=== PATIENT | male | born 1960 | race Caucasian/White ===

== ENCOUNTER 2017-11-29 11:37 | Observation (INO) | payer OTHER, SELFPAY ==
[2017-11-29] VITALS (13 sets, daily range): BP systolic 111–141; BP diastolic 77–89; PULSE 74–105; RESP 14–29; TEMP 36.4–36.9; O2SAT 97–100; BMI 34.4; BMI 35.9
[2017-11-29] MEDS: MethylPREDNISolone 125 MG/2 ML Vial IV (11:40)
--- NOTE | 2017-11-29 11:50 | EKG12_ITS ---
Test Reason : CHEST PAIN Blood Pressure : / mmHG Vent. Rate : 089 BPM Atrial Rate : 089 BPM P-R Int : 160 ms QRS Dur : 090 ms QT Int : 374 ms P-R-T Axes : 062 034 056 degrees QTc Int : 455 ms Normal sinus rhythm Normal ECG Confirmed by BRENDA BLANCO ([id number]), scientific publications editor SHAQ TORRES ([id number]) on 12/10/2017 6:29:58 PM Referred By: Confirmed By:BRENDA BLANCO
--- NOTE | 2017-11-29 11:50 | RAD_ITS ---
STUDY: X-RAY CHEST REASON FOR EXAM: Male, 57 years old. Shortness of breath. TECHNIQUE: Single AP portable view of the chest. COMPARISON: None. FINDINGS: The lungs are mildly hypoexpanded. There is no focal mass or infiltrate. There is no demonstrated pleural abnormality. Normal size heart. Normal mediastinum and samantha. Normal visualized pulmonary arteries. Normal visualized aortic arch and descending thoracic aorta. The thoracic spine is obscured by the mediastinum. Normal visualized ribs, clavicles, and shoulders. There is no demonstrated abnormality of the visualized soft tissue structures of the upper abdomen. RAD/Chest 1 View (Portable) IMPRESSION: No acute cardiopulmonary disease. Electronically Signed: Paul Perera DO at 12:07 EDT Tel [phone], Service support ,
[2017-11-29] MEDS: 0.9% Normal Saline 1,000 ML 1000 ML IV (11:58)
--- NOTE | 2017-11-29 12:00 | ED.RN ---
PT GRABBED HIS CHEST. STARTED C/O OF INCREASED SOB. PT VISIBLY WORKING TO BREATHE. PULSE OX REMAINS 100%. PT PLACED ON NRB. DR VELASQUEZ TO THE BEDSIDE
--- NOTE | 2017-11-29 12:01 | ED.RN ---
SECOND EPI GIVEN
[2017-11-29 12:28] LABS: Absolute Lymphocyte Count 2.75 X10^3/ul (0.83-4.51); Absolute Neutrophil Count 7.8 X10^3/uL (2.0-7.7); Basophil# 0.04 X10^3/uL; Basophil% 0.3 % (0-1); Eosinophil# 0.34 X10^3/uL; Eosinophils% 2.9 % (0-5); Hematocrit 42.8 % (40-54); Hemoglobin 13.9 g/dl (13.0-16.5); Lymphocyte # 2.75 X10^3/ul (4.0); Lymphocyte % 23.5 % (19-41); Mean Corp Hgb Conc 32.5 g/gl (32-36); Mean Corpuscular Hgb 27.7 pg (27.0-32.0); Mean Corpuscular Volume 85.4 fL (80-94); Mean Platelet Vol. 10.3 fl (6.2-12.0); Monocyte# 0.69 X10^3/uL; Monocyte% 5.9 % (0-10); Neutrophil # 7.83 X10^3/uL (2.7-7.7); Neutrophil % 67.1 % (47-70); Platelet Count 364 K/mm3 (150-450); RBC Distribution Width CV 14.1 % (11.6-14.6); RBC Distribution Width SD 43.7 fl (35.1-43.9); Red Blood Count 5.01 M/mm3 (4.6-6.2); White Blood Count 11.7 K/mm3 (4.4-11.0)
--- NOTE | 2017-11-29 12:31 | ED.DCSUM_ITS ---
- ER Visit Summary Date of Service: 11/29/17 Chief Complaint: Allergic reaction History of Present Illness: The patient is a 57 M presenting with allergic reaction. Patient was riding in a truck to work and began having itching in both arms and legs. When he arrived at work he started staggering and vomited. EMS was called. He was given Benadryl prior to arrival per EMS. He complains of tightness in his throat, shortness of breath and diffuse rash. He denies any new exposures. He does not believe he was stung. No new medications or foods. Physical Examination: Vitals are stable. Patient is afebrile. Alert no acute distress. HEENT exam is unremarkable. No tongue swelling. No pharyngeal edema. Neck is supple. No stridor Lungs are clear and equal bilaterally. Heart is regular rate and rhythm. Abdomen is soft nontender nondistended. Extremities are unremarkable. Skin diffuse urticaria No focal neurologic deficit. Remainder of exam is unremarkable. Emergency Department Course and Treatment: Patient was given epinephrine IM, Solu-Medrol, Pepcid. He initially had improvement and then had return of his symptoms. He was given additional epinephrine IM with improvement. He has improvement of the sensation of throat tightness but continues to have itching in his extremities. He was given Benadryl IV. He was observed in the ED with improvement. CBC normal except for white count 11.7. Chemistries unremarkable. Troponin is negative. Chest x-ray shows no acute process. EKG is sinus rate of 89. Discussed with the hospitalist for observation. Disposition: Observation Impression: Anaphylaxis This note was generated with [employer] dictation software. It may contain incorrect words, spelling, and punctuation that were not noted in review of the chart prior to signing ED Disposition - Plan for ED Patient: Chief Complaint: Allergic Reaction Referrals: [facility] Doctor,Out of [Primary Care Provider] -
[2017-11-29 12:35] LABS: POSITIVE COUNT NO; POSITIVE DIFFERENTIAL NO; POSITIVE MORPHOLOGY NO
[2017-11-29 12:41] LABS: Anion Gap 10 (5-15); BUN 11 mg/dL (7-18); Calcium,Total 8.3 mg/dL (8.5-10.1); Chloride 108 mmol/L (98-107); EST Glomerular Filtration Rate 74 mL/min (>60); Est Glom Filt Rate - Afr Amer 89 mL/min (>60); Estimated Creatinine Clearance 75.88 ml/min; Glucose 154 mg/dL (74-106); Potassium 3.7 mmol/L (3.5-5.1); Sodium Level 141 mmol/L (136-145)
--- NOTE | 2017-11-29 12:52 | ED.RN ---
PT C/O ITCHING BEGINNING IN ARMS AGAIN. PT STATES THIS IS HOW IT STARTED BEFORE. DR VELASQUEZ NOTIFIED
[2017-11-29] MEDS: DiphenhydrAMINE 50 MG/ML Syringe 25 MG IV (12:59)
--- NOTE | 2017-11-29 15:13 | PCM.HP.STD ---
Problem List (1) GERD (gastroesophageal reflux disease) Status: Chronic (2) Gout Status: Chronic (3) Hyperlipidemia Status: Chronic (4) Hypertension Status: Chronic History of Present Illness Date of Admission: 11/29/17 Chief Complaint: Itching, skin rash. The patient is a 57 year old M with past medical history as mentioned above presented to the emergency room because of itching, skin rash and shortness of breath. 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 Shortly after, he started having skin rash that started on both upper arms, upper back and upper chest and then became generalized and associated with shortness of breath. He mentioned that he felt that there is a lump in his throat, felt short of breath at rest, associated with dizziness and lightheadedness as well as nausea and vomiting. He denied taking any new medications or foods. He denied insect bites. He denied known allergies in the past. He has been taking lisinopril for more than 2 years for hypertension. In the emergency department, he received epinephrine injections twice as well as IV Solu-Medrol and Pepcid and symptoms continued to recur. He was afebrile, heart rate was stable, blood pressure stable, at one point he required nonrebreather mask because of shortness of breath and at this time, pulse ox is maintained on 2 L of oxygen. His routine blood work was unremarkable. EKG revealed normal sinus rhythm, normal intervals and no evidence of acute ischemic changes or cardiac arrhythmias. Troponin is negative. Chest x-ray showed no acute findings. He is being admitted for anaphylactic reaction of unknown etiology. Past Medical History Past Medical History (Chronic Problems): Chronic Problems GERD (gastroesophageal reflux disease) (Chronic) Gout (Chronic) Hyperlipidemia (Chronic) Hypertension (Chronic) Allergies No Known Allergies Allergy (Verified 11/29/17 11:51) Home Medications: Ambulatory Orders Medication Instructions Recorded Allopurinol [Zyloprim] 300 mg PO DAILY 11/29/17 Lisinopril [Zestril] 5 mg PO DAILY 11/29/17 Omeprazole [Prilosec] 20 mg PO DAILY 11/29/17 Pravastatin [Pravachol] 20 mg PO DAILY 11/29/17 Surgical History: - - Back surgery. Psychiatric History: No pertinent psych hx Lives: Spouse/ Significant Other Smoking Status: Current some day smoker Tobacco Use: Cigarettes Alcohol: Heavy Drugs: None - *Family History Maternal History Items: No pertinent history Paternal History Items: No pertinent history Review of Systems Constitutional: Denies: Anorexia, Chills, Fever, Weakness Eyes: Denies: Blurred vision, Double vision, Drainage, Redness HEENT: Denies: Difficulty Hearing, Ear Pain, Eye Pain, Nasal Congestion, Sore Throat Cardiovascular: Reports: Chest Tightness, Light Headedness. Denies: Chest Pain, Chest Pressure, Heaviness, Palpitations, Syncope Respiratory: Reports: Shortness of Breath. Denies: Cough, Pleuritic Pain, Sputum production, Wheezing Gastrointestinal: Reports: Nausea, Vomiting. Denies: Abdominal Pain, Constipation, Diarrhea Genitourinary: Denies: Dysuria, Frequency, Hematuria Musculoskeletal: Denies: Arm Pain, Back Pain, Foot Pain Skin: Reports: Pruritis, Rash. Denies: Dryness Neurological: Denies: Balance problems, Double vision, Change in Speech, Slurred speech, Confusion, Headaches, Incoordination, Numbness Psychiatric: Denies: Anxiety, Depression Endocrine: Denies: Change in Body Habitus, Polydipsia VTE Information - Inpt Only VTE Present on Admission: No VTE Mechan Device Prophylaxis: None VTE Pharm Prophylaxis ordered?: No - Physical Exam General: Alert, Oriented x3, Cooperative, No apparent distress HEENT: Atraumatic, PERRLA, EOMI Oral: Moist Mucosa, No Gingival or Mucosal Lesions/ Ulcerations Neck: Supple, No JVD, Negative Carotid Bruits, Trachea Midline, Thyroid Normal Size and Texture Lungs: Clear to auscultation, Normal air movement, No rhonchi, No wheeze, No rales Cardiovascular: Regular rate, Regular Rhythm, Normal S1, Normal S2, No murmurs, PMI Normal Abdomen: Bowel Sounds Present, Soft, Non Tender, Non-Distended, No Hepato-splenomegaly Extremities: No clubbing, No cyanosis, No edema Skin: No rashes, No breakdown Lymphatic: No Cervical, Supraclavicular, or Inguinal Adenopathy Neurological: Cranial nerves II-XII grossly intact, Motor Exam 5/5 strength throughout Psych/Mental Status: Normal Affect, Appropriate, Alert and oriented to time, place, person, mood and affect Vital Signs Temp Pulse Resp BP Pulse Ox 97.5 F L 92 29 H 141/89 H 100 11/29/17 11:41 11/29/17 15:08 11/29/17 15:08 11/29/17 15:08 11/29/17 15:08 Laboratory Tests 11/29/17 11/29/17 Range/Units 12:13 12:13 WBC 11.7 H (4.4-11.0) K/mm3 RBC 5.01 (4.6-6.2) M/mm3 Hgb 13.9 (13.0-16.5) g/dl Hct 42.8 (40-54) % MCV 85.4 (80-94) fL MCH 27.7 (27.0-32.0) pg MCHC 32.5 (32-36) g/gl RDW 14.1 (11.6-14.6) % RDW Differential 43.7 (35.1-43.9) fl Plt Count 364 (150-450) K/mm3 MPV 10.3 (6.2-12.0) fl Immature Gran % (Auto) 0.300 (0.0-0.9) % Neut % (Auto) 67.1 (47-70) % Lymph % (Auto) 23.5 (19-41) % [place] % (Auto) 5.9 (0-10) % Eos % (Auto) 2.9 (0-5) % Baso % (Auto) 0.3 (0-1) % Absolute Neuts (auto) 7.8 H (2.0-7.7) X10^3/uL Absolute Lymphs (auto) 2.75 (0.83-4.51) X10^3/ul Total Counted Not Reportable Sodium 141 (136-145) mmol/L Potassium 3.7 (3.5-5.1) mmol/L Chloride 108 H (98-107) mmol/L Carbon Dioxide 23.0 (21.0-32.0) mmol/L Anion Gap 10 (5-15) BUN 11 (7-18) mg/dL Creatinine 1.10 (0.70-1.30) mg/dL Estim Creat Clear Calc 75.88 ml/min Est GFR (MDRD) Af Amer 89 (>60) mL/min Est GFR (MDRD) Non-Af 74 (>60) mL/min BUN/Creatinine Ratio 10.0 (10-20) RATIO Glucose 154 H (74-106) mg/dL Calcium 8.3 L (8.5-10.1) mg/dL Troponin I < 0.015 (<0.045) ng/mL Clinical Impression(s) from Imaging Studies Chest X-Ray 11/29/17 11:50 IMPRESSION: No acute cardiopulmonary disease. Electronically Signed: Paul Perera DO at 12:07 EDT Tel [phone], Service support , Assessment/Plan This is a 57 year-old with past medical history as mentioned above presented to the emergency room because of itching, skin rash, shortness of breath and nausea with vomiting and he was found to have anaphylactic reaction of unknown etiology. #1 anaphylactic reaction: Of unclear etiology. Patient has been on lisinopril for more than 2 years. This is not typical for angioedema, no lip swelling. Patient received epinephrine twice in the ER as well as IV steroids and Pepcid. His symptoms kept recurring. At this time, his vital signs are stable, respiratory status is stabilized. Routine blood work reviewed, unremarkable. EKG was unremarkable as well. Chest x-ray showed no acute findings. Plan: Admit to PCU for observation, cardiac monitoring, continuous pulse oximeter, hold lisinopril, start IV Solu-Medrol, IV Benadryl as needed, IV Pepcid twice daily, repeat CBC and BMP tomorrow morning. #2 hypertension: Blood pressure stable, hold lisinopril. #3 hyperlipidemia: Continue statins. #4 GERD: Start Pepcid IV twice daily. #5 gout: Continue allopurinol. #6 DVT prophylaxis: Low risk patient, no prophylaxis indicated. This note was generated with [employer] dictation software. It may contain incorrect words, spelling, and punctuation that were not noted in checking the note before signing. Code Visit OBSV E&M: 19009 Initial observation care L3
--- NOTE | 2017-11-29 15:20 | HP.PCM_ITS ---
Problem List (1) GERD (gastroesophageal reflux disease) Status: Chronic (2) Gout Status: Chronic (3) Hyperlipidemia Status: Chronic (4) Hypertension Status: Chronic History of Present Illness Date of Admission: 11/29/17 Chief Complaint: Itching, skin rash. The patient is a 57 year old M with past medical history as mentioned above presented to the emergency room because of itching, skin rash and shortness of breath. 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 Shortly after, he started having skin rash that started on both upper arms, upper back and upper chest and then became generalized and associated with shortness of breath. He mentioned that he felt that there is a lump in his throat, felt short of breath at rest, associated with dizziness and lightheadedness as well as nausea and vomiting. He denied taking any new medications or foods. He denied insect bites. He denied known allergies in the past. He has been taking lisinopril for more than 2 years for hypertension. In the emergency department, he received epinephrine injections twice as well as IV Solu-Medrol and Pepcid and symptoms continued to recur. He was afebrile, heart rate was stable, blood pressure stable, at one point he required nonrebreather mask because of shortness of breath and at this time, pulse ox is maintained on 2 L of oxygen. His routine blood work was unremarkable. EKG revealed normal sinus rhythm, normal intervals and no evidence of acute ischemic changes or cardiac arrhythmias. Troponin is negative. Chest x-ray showed no acute findings. He is being admitted for anaphylactic reaction of unknown etiology. Past Medical History Past Medical History (Chronic Problems): Chronic Problems GERD (gastroesophageal reflux disease) (Chronic) Gout (Chronic) Hyperlipidemia (Chronic) Hypertension (Chronic) Allergies No Known Allergies Allergy (Verified 11/29/17 11:51) Home Medications: Ambulatory Orders Medication Instructions Recorded Allopurinol [Zyloprim] 300 mg PO DAILY 11/29/17 Lisinopril [Zestril] 5 mg PO DAILY 11/29/17 Omeprazole [Prilosec] 20 mg PO DAILY 11/29/17 Pravastatin [Pravachol] 20 mg PO DAILY 11/29/17 Surgical History: - - Back surgery. Psychiatric History: No pertinent psych hx Lives: Spouse/ Significant Other Smoking Status: Current some day smoker Tobacco Use: Cigarettes Alcohol: Heavy Drugs: None - *Family History Maternal History Items: No pertinent history Paternal History Items: No pertinent history Review of Systems Constitutional: Denies: Anorexia, Chills, Fever, Weakness Eyes: Denies: Blurred vision, Double vision, Drainage, Redness HEENT: Denies: Difficulty Hearing, Ear Pain, Eye Pain, Nasal Congestion, Sore Throat Cardiovascular: Reports: Chest Tightness, Light Headedness. Denies: Chest Pain , Chest Pressure, Heaviness, Palpitations, Syncope Respiratory: Reports: Shortness of Breath. Denies: Cough, Pleuritic Pain, Sputum production, Wheezing Gastrointestinal: Reports: Nausea, Vomiting. Denies: Abdominal Pain, Constipation, Diarrhea Genitourinary: Denies: Dysuria, Frequency, Hematuria Musculoskeletal: Denies: Arm Pain, Back Pain, Foot Pain Skin: Reports: Pruritis, Rash. Denies: Dryness Neurological: Denies: Balance problems, Double vision, Change in Speech, Slurred speech, Confusion, Headaches, Incoordination, Numbness Psychiatric: Denies: Anxiety, Depression Endocrine: Denies: Change in Body Habitus, Polydipsia VTE Information - Inpt Only VTE Present on Admission: No VTE Mechan Device Prophylaxis: None VTE Pharm Prophylaxis ordered?: No - Physical Exam General: Alert, Oriented x3, Cooperative, No apparent distress HEENT: Atraumatic, PERRLA, EOMI Oral: Moist Mucosa, No Gingival or Mucosal Lesions/ Ulcerations Neck: Supple, No JVD, Negative Carotid Bruits, Trachea Midline, Thyroid Normal Size and Texture Lungs: Clear to auscultation, Normal air movement, No rhonchi, No wheeze, No rales Cardiovascular: Regular rate, Regular Rhythm, Normal S1, Normal S2, No murmurs, PMI Normal Abdomen: Bowel Sounds Present, Soft, Non Tender, Non-Distended, No Hepato- splenomegaly Extremities: No clubbing, No cyanosis, No edema Skin: No rashes, No breakdown Lymphatic: No Cervical, Supraclavicular, or Inguinal Adenopathy Neurological: Cranial nerves II-XII grossly intact, Motor Exam 5/5 strength throughout Psych/Mental Status: Normal Affect, Appropriate, Alert and oriented to time, place, person, mood and affect Vital Signs Temp Pulse Resp BP Pulse Ox 97.5 F L 92 29 H 141/89 H 100 11/29/17 11:41 11/29/17 15:08 11/29/17 15:08 11/29/17 15:08 11/29/17 15:08 Laboratory Tests 3 11/29/17 11/29/17 Range/Units 12:13 12:13 WBC 11.7 H (4.4-11.0) K/mm3 RBC 5.01 (4.6-6.2) M/mm3 Hgb 13.9 (13.0-16.5) g/dl Hct 42.8 (40-54) % MCV 85.4 (80-94) fL MCH 27.7 (27.0-32.0) pg MCHC 32.5 (32-36) g/gl RDW 14.1 (11.6-14.6) % RDW Differential 43.7 (35.1-43.9) fl Plt Count 364 (150-450) K/mm3 MPV 10.3 (6.2-12.0) fl Immature Gran % (Auto) 0.300 (0.0-0.9) % Neut % (Auto) 67.1 (47-70) % Lymph % (Auto) 23.5 (19-41) % [place] % (Auto) 5.9 (0-10) % Eos % (Auto) 2.9 (0-5) % Baso % (Auto) 0.3 (0-1) % Absolute Neuts (auto) 7.8 H (2.0-7.7) X10^3/uL Absolute Lymphs (auto) 2.75 (0.83-4.51) X10^3/ul Total Counted Not Reportable Sodium 141 (136-145) mmol/L Potassium 3.7 (3.5-5.1) mmol/L Chloride 108 H (98-107) mmol/L Carbon Dioxide 23.0 (21.0-32.0) mmol/L Anion Gap 10 (5-15) BUN 11 (7-18) mg/dL Creatinine 1.10 (0.70-1.30) mg/dL Estim Creat Clear Calc 75.88 ml/min Est GFR (MDRD) Af Amer 89 (>60) mL/min Est GFR (MDRD) Non-Af 74 (>60) mL/min BUN/Creatinine Ratio 10.0 (10-20) RATIO Glucose 154 H (74-106) mg/dL Calcium 8.3 L (8.5-10.1) mg/dL Troponin I < 0.015 (<0.045) ng/mL Clinical Impression(s) from Imaging Studies Chest X-Ray 11/29/17 11:50 IMPRESSION: No acute cardiopulmonary disease. Electronically Signed: Paul Perera DO at 12:07 EDT Tel [phone], Service support , Assessment/Plan This is a 57 year-old with past medical history as mentioned above presented to the emergency room because of itching, skin rash, shortness of breath and nausea with vomiting and he was found to have anaphylactic reaction of unknown etiology. #1 anaphylactic reaction: Of unclear etiology. Patient has been on lisinopril for more than 2 years. This is not typical for angioedema, no lip swelling. Patient received epinephrine twice in the ER as well as IV steroids and Pepcid. His symptoms kept recurring. At this time, his vital signs are stable, respiratory status is stabilized. Routine blood work reviewed, unremarkable. EKG was unremarkable as well. Chest x-ray showed no acute findings. Plan: Admit to PCU for observation, cardiac monitoring, continuous pulse oximeter, hold lisinopril, start IV Solu-Medrol, IV Benadryl as needed, IV Pepcid twice daily, repeat CBC and BMP tomorrow morning. #2 hypertension: Blood pressure stable, hold lisinopril. #3 hyperlipidemia: Continue statins. #4 GERD: Start Pepcid IV twice daily. #5 gout: Continue allopurinol. #6 DVT prophylaxis: Low risk patient, no prophylaxis indicated. This note was generated with [employer] dictation software. It may contain incorrect words, spelling, and punctuation that were not noted in checking the note before signing. Code Visit OBSV E&M: 21913 Initial observation care L3
[2017-11-29] MEDS: 0.9% Normal Saline 1,000 ML 75 ML IV (15:50)
[2017-11-30] VITALS (7 sets, daily range): BP systolic 135–159; BP diastolic 80–91; PULSE 82–99; RESP 14–16; TEMP 36.6–37.1; O2SAT 93–96
[2017-11-30] MEDS: 0.9% Normal Saline 1,000 ML 75 ML IV (04:10)
[2017-11-30 07:05] LABS: Absolute Lymphocyte Count 0.98 X10^3/ul (0.83-4.51); Absolute Neutrophil Count 14.6 X10^3/uL (2.0-7.7); Hematocrit 40.4 % (40-54); Lymphocyte # 0.98 X10^3/ul (4.0); Lymphocyte % 6.2 % (19-41); Mean Corp Hgb Conc 32.2 g/gl (32-36); Mean Corpuscular Hgb 27.5 pg (27.0-32.0); Mean Corpuscular Volume 85.6 fL (80-94); Mean Platelet Vol. 10.2 fl (6.2-12.0); Monocyte# 0.22 X10^3/uL; Monocyte% 1.4 % (0-10); Neutrophil # 14.56 X10^3/uL (2.7-7.7); Neutrophil % 92.3 % (47-70); Platelet Count 276 K/mm3 (150-450); RBC Distribution Width CV 13.9 % (11.6-14.6); RBC Distribution Width SD 43.9 fl (35.1-43.9); Red Blood Count 4.72 M/mm3 (4.6-6.2); White Blood Count 15.8 K/mm3 (4.4-11.0)
[2017-11-30 07:15] LABS: POSITIVE COUNT NO; POSITIVE DIFFERENTIAL NO; POSITIVE MORPHOLOGY NO
[2017-11-30 07:28] LABS: Anion Gap 12 (5-15); BUN 15 mg/dL (7-18); BUN/Creat Ratio 15.1 RATIO (10-20); Calcium,Total 8.6 mg/dL (8.5-10.1); Chloride 109 mmol/L (98-107); EST Glomerular Filtration Rate 83 mL/min (>60); Est Glom Filt Rate - Afr Amer 100 mL/min (>60); Estimated Creatinine Clearance 75.32 ml/min; Glucose 190 mg/dL (74-106); Potassium 4.4 mmol/L (3.5-5.1); Sodium Level 141 mmol/L (136-145)
[2017-11-30] MEDS: Allopurinol 300 MG Tablet PO (09:02)
[2017-11-30] MEDS: predniSONE 20 MG Tablet 40 MG PO (13:24)
[2017-11-30] MEDS: Loratadine 10 MG Tablet PO (13:24)
[2017-11-30] MEDS: Famotidine 20 MG Tablet 40 MG PO (13:24)
--- NOTE | 2017-11-30 16:23 | DCINST_ITS ---
- Discharge Diagnoses Current Active Problems: Current Active and Chronic Problems GERD (gastroesophageal reflux disease) (Chronic) Gout (Chronic) Hyperlipidemia (Chronic) Hypertension (Chronic) You will use the following diet at home:: No restrictions Your food should be the consistency of: Regular Your liquids should be the consistency of: Regular/Thin Discharge Activity: Return to Normal Activity - Make sure you are around people for the next few days in case the symtoms return Return to work on:: 12/03/17 Call your doctor if you observe: Fever of 101 or Higher, Inability to urinate, Inability to have a bowel movement, Shortness of breath, Dizziness, Fainting spells, Swelling in the ankles, Chest pain, - - recurrent rash, itching, trouble swallowing, trouble breathing, swollen tongue or swollen lips Instructions: ED Anaphylaxis General, First Aid: Allergic Reactions Additional Instructions: I do not know what you are allergic to......I can not guarantee that this will not happen again because of this. It may be the lisinopril....this is one of the side effects of this drug and it can happen at any time.....loco pina have been on the drugs for a few years. It also could be the Pravastatin because this was only recently added to your drug regimen.....do NOT take either one of these medications. It could also be due to any new laundry products, soap, colognes, dryer sheets, lotions etc. I am giving you a prescription for an EPIPEN and this is to be used in the event you develop the same symptoms again......keep this with you at all times. I am also giving you a 5 days course of 2 different antihistamine drugs....Claritin and Famotidine and steroids.....theses medications help prevent allergic reactions. You may need to see an patient financial representative and have testing done to try and identify the agent that lead to the reaction. Discuss this with your PCP. There is a history of asthma in your family and you wheeze with exercise and exposure to cold air....I would consider having pulmonary function tests in the future. Please also consider discontinuing smoking. Pending Tests on Discharge: none Allergies/Adverse Reactions: Allergies No Known Allergies Allergy (Verified 11/29/17 11:51) Medications to take at Discharge Allopurinol [Zyloprim] 300 mg PO DAILY 11/29/17 Omeprazole [Prilosec] 20 mg PO DAILY 11/29/17 Famotidine [Pepcid] 20 mg PO BID #10 tab 11/30/17 Loratadine [Claritin] 10 mg PO DAILY #5 tab 11/30/17 Prednisone 40 mg PO DAILY #10 tab 11/30/17 The following prescriptions were given: Loratadine [Claritin] 10 mg PO DAILY #5 tab Prednisone 40 mg PO DAILY #10 tab Famotidine [Pepcid] 20 mg PO BID #10 tab Primary Care Physician: Rachel Doctor,Out of [NON-STAFF] - Please follow up with your Primary Care Physician in: early next week Proposed Discharge Date: 11/30/17
--- NOTE | 2018-01-02 07:01 | PCM.DC.SUM ---
Discharge Date and Diagnosis Date of Admission: 11/29/17 Date of Discharge: 11/30/17 - Primary Discharge Diagnosis Anaphylactic reaction to unknown allergen - Secondary Discharge Diagnosis Chronic Problems Obesity (Chronic) GERD (gastroesophageal reflux disease) (Chronic) Gout (Chronic) Hyperlipidemia (Chronic) Hypertension (Chronic) Hospital Course and Treatment Imaging Results: Clinical Impression(s) from Imaging Studies Chest X-Ray 11/29/17 11:50 IMPRESSION: No acute cardiopulmonary disease. Electronically Signed: Paul ePrera DO at 12:07 EDT Tel [phone], Service support , Laboratory Tests 11/29/17 11/29/17 11/30/17 12:13 12:13 06:10 WBC 11.7 H 15.8 H RBC 5.01 4.72 Hgb 13.9 13.0 Hct 42.8 40.4 MCV 85.4 85.6 MCH 27.7 27.5 MCHC 32.5 32.2 RDW 14.1 13.9 RDW Differential 43.7 43.9 Plt Count 364 276 MPV 10.3 10.2 Immature Gran % (Auto) 0.300 0.100 Neut % (Auto) 67.1 92.3 H Lymph % (Auto) 23.5 6.2 L [place] % (Auto) 5.9 1.4 Eos % (Auto) 2.9 0.0 Baso % (Auto) 0.3 0.0 Absolute Neuts (auto) 7.8 H 14.6 H Absolute Lymphs (auto) 2.75 0.98 Total Counted Not Reportable Not Reportable Sodium 141 Potassium 3.7 Chloride 108 H Carbon Dioxide 23.0 Anion Gap 10 BUN 11 Creatinine 1.10 Estim Creat Clear Calc 75.88 Est GFR (MDRD) Af Amer 89 Est GFR (MDRD) Non-Af 74 BUN/Creatinine Ratio 10.0 Glucose 154 H Calcium 8.3 L Troponin I < 0.015 11/30/17 06:10 WBC RBC Hgb Hct MCV MCH MCHC RDW RDW Differential Plt Count MPV Immature Gran % (Auto) Neut % (Auto) Lymph % (Auto) [place] % (Auto) Eos % (Auto) Baso % (Auto) Absolute Neuts (auto) Absolute Lymphs (auto) Total Counted Sodium 141 Potassium 4.4 Chloride 109 H Carbon Dioxide 20.0 L Anion Gap 12 BUN 15 Creatinine 1.00 Estim Creat Clear Calc 75.32 Est GFR (MDRD) Af Amer 100 Est GFR (MDRD) Non-Af 83 BUN/Creatinine Ratio 15.1 Glucose 190 H Calcium 8.6 Troponin I none Operations: None Procedures: None Summary of Care Provided: The patient is a 57 year old M with a past medical history of GERD, gout, hyperlipidemia, hypertension and obesity who presented to the emergency department at [facility] on 11/29/2017 complaining of itching, skin rash and shortness of breath. 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 He felt as if there was a lump in his throat and was short of breath even at rest. He complained of dizziness and lightheadedness as well as nausea and vomiting. His only new medication was Pravastatin. He denied any new foods and also denied any insect bites. He denied any known allergies in the past. He had been taking lisinopril for 2 years with no problem. He was treated with epinephrine injection ?2 in the emergency room as well as IV Solu-Medrol and Pepcid. The symptoms continued to recur and he was admitted to the hospital and continued on IV Solu-Medrol, IV Pepcid and also Benadryl. Lisinopril was discontinued. The following day he had no pruritus and the rash was markedly improved. He denied SOB. The lungs were CTA. He was discharged home and instructed to discontinue both Lisinopril and Pravastatin. He was given prescription for an EpiPen. He was given Famotidine, Prednisone and Claritin and instructed to take them as directed for the next 5 days. I recommended he discuss referral to an global account manager with his PCP. Smoking cessation counselling was given in the hospital. Discharge Activity: Return to Normal Activity - Make sure you are around people for the next few days in case the symtoms return Return to work on:: 12/03/17 Call your doctor if you observe: Fever of 101 or Higher, Inability to urinate, Inability to have a bowel movement, Shortness of breath, Dizziness, Fainting spells, Swelling in the ankles, Chest pain, - - recurrent rash, itching, trouble swallowing, trouble breathing, swollen tongue or swollen lips Home Medications: Medications to take at Discharge Allopurinol [Zyloprim] 300 mg PO DAILY 11/29/17 Omeprazole [Prilosec] 20 mg PO DAILY 11/29/17 Epinephrine [Epipen] 0.3 mg IJ X1 PRN #1 auto.injct 11/30/17 Famotidine [Pepcid] 20 mg PO BID #10 tab 11/30/17 Loratadine [Claritin] 10 mg PO DAILY #5 tab 11/30/17 Prednisone 40 mg PO DAILY #10 tab 11/30/17 Following Prescrptions Were Given to Patient: Epinephrine [Epipen] 0.3 mg IJ X1 PRN #1 auto.injct PRN Reason: severe allergic reaction Loratadine [Claritin] 10 mg PO DAILY #5 tab Prednisone 40 mg PO DAILY #10 tab Famotidine [Pepcid] 20 mg PO BID #10 tab Primary Care Physician: Rachel Doctor,Out of [NON-STAFF] - Please follow up with your Primary Care Physician in: early next week Patient Instructions: First Aid: Allergic Reactions, ED Anaphylaxis General Disposition: Home Minutes spent on discharge:: 30 Patient Condition:: Good Medical Necessity - Tobacco Use Smoking Status: Current some day smoker Tobacco Use: Cigarettes Meaningful Use Info Meaningful Use Diagnoses (Choose all that apply): None applicable Code Visit Inpatient E&M: 61371 Disch Hosp
--- NOTE | 2018-01-02 07:08 | DS.PCM_ITS ---
Discharge Date and Diagnosis Date of Admission: 11/29/17 Date of Discharge: 11/30/17 - Primary Discharge Diagnosis Anaphylactic reaction to unknown allergen - Secondary Discharge Diagnosis Chronic Problems Obesity (Chronic) GERD (gastroesophageal reflux disease) (Chronic) Gout (Chronic) Hyperlipidemia (Chronic) Hypertension (Chronic) Hospital Course and Treatment Imaging Results: Clinical Impression(s) from Imaging Studies Chest X-Ray 11/29/17 11:50 IMPRESSION: No acute cardiopulmonary disease. Electronically Signed: Paul Perera DO at 12:07 EDT Tel [phone], Service support , Laboratory Tests 11/29/17 11/29/17 11/30/17 12:13 12:13 06:10 WBC 11.7 H 15.8 H RBC 5.01 4.72 Hgb 13.9 13.0 Hct 42.8 40.4 MCV 85.4 85.6 MCH 27.7 27.5 MCHC 32.5 32.2 RDW 14.1 13.9 RDW Differential 43.7 43.9 Plt Count 364 276 MPV 10.3 10.2 Immature Gran % (Auto) 0.300 0.100 Neut % (Auto) 67.1 92.3 H Lymph % (Auto) 23.5 6.2 L [place] % (Auto) 5.9 1.4 Eos % (Auto) 2.9 0.0 Baso % (Auto) 0.3 0.0 Absolute Neuts (auto) 7.8 H 14.6 H Absolute Lymphs (auto) 2.75 0.98 Total Counted Not Reportable Not Reportable Sodium 141 Potassium 3.7 Chloride 108 H Carbon Dioxide 23.0 Anion Gap 10 BUN 11 Creatinine 1.10 Estim Creat Clear Calc 75.88 Est GFR (MDRD) Af Amer 89 Est GFR (MDRD) Non-Af 74 BUN/Creatinine Ratio 10.0 Glucose 154 H Calcium 8.3 L Troponin I < 0.015 11/30/17 06:10 WBC RBC Hgb Hct MCV MCH MCHC RDW RDW Differential Plt Count MPV Immature Gran % (Auto) Neut % (Auto) Lymph % (Auto) [place] % (Auto) Eos % (Auto) Baso % (Auto) Absolute Neuts (auto) Absolute Lymphs (auto) Total Counted Sodium 141 Potassium 4.4 Chloride 109 H Carbon Dioxide 20.0 L Anion Gap 12 BUN 15 Creatinine 1.00 Estim Creat Clear Calc 75.32 Est GFR (MDRD) Af Amer 100 Est GFR (MDRD) Non-Af 83 BUN/Creatinine Ratio 15.1 Glucose 190 H Calcium 8.6 Troponin I none Operations: None Procedures: None Summary of Care Provided: The patient is a 57 year old M with a past medical history of GERD, gout, hyperlipidemia, hypertension and obesity who presented to the emergency department at [facility] on 11/29/2017 complaining of itching, skin rash and shortness of breath. 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 He felt as if there was a lump in his throat and was short of breath even at rest. He complained of dizziness and lightheadedness as well as nausea and vomiting. His only new medication was Pravastatin. He denied any new foods and also denied any insect bites. He denied any known allergies in the past. He had been taking lisinopril for 2 years with no problem. He was treated with epinephrine injection ?2 in the emergency room as well as IV Solu-Medrol and Pepcid. The symptoms continued to recur and he was admitted to the hospital and continued on IV Solu-Medrol, IV Pepcid and also Benadryl. Lisinopril was discontinued. The following day he had no pruritus and the rash was markedly improved. He denied SOB. The lungs were CTA. He was discharged home and instructed to discontinue both Lisinopril and Pravastatin. He was given prescription for an EpiPen. He was given Famotidine, Prednisone and Claritin and instructed to take them as directed for the next 5 days. I recommended he discuss referral to an creative recruiter with his PCP. Smoking cessation counselling was given in the hospital. Discharge Activity: Return to Normal Activity - Make sure you are around people for the next few days in case the symtoms return Return to work on:: 12/03/17 Call your doctor if you observe: Fever of 101 or Higher, Inability to urinate, Inability to have a bowel movement, Shortness of breath, Dizziness, Fainting spells, Swelling in the ankles, Chest pain, - - recurrent rash, itching, trouble swallowing, trouble breathing, swollen tongue or swollen lips Home Medications: Medications to take at Discharge Allopurinol [Zyloprim] 300 mg PO DAILY 11/29/17 Omeprazole [Prilosec] 20 mg PO DAILY 11/29/17 Epinephrine [Epipen] 0.3 mg IJ X1 PRN #1 auto.injct 11/30/17 Famotidine [Pepcid] 20 mg PO BID #10 tab 11/30/17 Loratadine [Claritin] 10 mg PO DAILY #5 tab 11/30/17 Prednisone 40 mg PO DAILY #10 tab 11/30/17 Following Prescrptions Were Given to Patient: Epinephrine [Epipen] 0.3 mg IJ X1 PRN #1 auto.injct PRN Reason: severe allergic reaction Loratadine [Claritin] 10 mg PO DAILY #5 tab Prednisone 40 mg PO DAILY #10 tab Famotidine [Pepcid] 20 mg PO BID #10 tab Primary Care Physician: Rachel Doctor,Out of [NON-STAFF] - Please follow up with your Primary Care Physician in: early next week Patient Instructions: First Aid: Allergic Reactions, ED Anaphylaxis General Disposition: Home Minutes spent on discharge:: 30 Patient Condition:: Good Medical Necessity - Tobacco Use Smoking Status: Current some day smoker Tobacco Use: Cigarettes Meaningful Use Info Meaningful Use Diagnoses (Choose all that apply): None applicable Code Visit Inpatient E&M: 70596 Disch Hosp
== END 2017-11-30 16:24 | disposition home or self-care (01) ==
LOC: ED 15:10 → PCU 11-30 06:12
PROVIDERS: Admitting Provider Hospitalist; Emergency Provider Emergency Medicine; Family Provider Nurse Practitioner Family; PCP Nurse Practitioner Family; Visit Provider Internal Medicine
DX: T78.2XXA Anaphylactic shock, unspecified, initial encounter (principal); E78.5 Hyperlipidemia, unspecified; I10 Essential (primary) hypertension; M10.9 Gout, unspecified; K21.9 Gastro-esophageal reflux disease without esophagitis; Z79.899 Other long term (current) drug therapy; F17.210 Nicotine dependence, cigarettes, uncomplicated; E66.9 Obesity, unspecified; Z68.35 Body mass index [BMI] 35.0-35.9, adult; Z71.3 Dietary counseling and surveillance
CPT/HCPCS: 36415; 71045; 80048; 84484; 85025; 93005; 94762; 96361; 96365; 96366; 96375; 96376; 99218; 99285; J7030; A4216; G0378; J3490